=== PATIENT | female | born 1980 | race Caucasian/White ===

== ENCOUNTER → 2018-10-02 | Outpatient (CLI) | payer OTHER | LOC: COL.RAD 07:53 | DX: K59.00 Constipation, unspecified (principal); R10.9 Unspecified abdominal pain; R19.7 Diarrhea, unspecified; R14.0 Abdominal distension (gaseous) | CPT/HCPCS: A9541 ==

== ENCOUNTER → 2020-05-01 | Outpatient (CLI) | payer OTHER | LOC: COL.RAD 11:59 | DX: G43.719 Chronic migraine without aura, intractable, without status migrainosus (principal); G40.909 Epilepsy, unspecified, not intractable, without status epilepticus; F07.81 Postconcussional syndrome | CPT/HCPCS: A9585 ==

== ENCOUNTER → 2020-06-05 | Outpatient (CLI) | payer OTHER | LOC: COL.CARD 12:24 | DX: G43.719 Chronic migraine without aura, intractable, without status migrainosus (principal); G40.909 Epilepsy, unspecified, not intractable, without status epilepticus; R41.89 Other symptoms and signs involving cognitive functions and awareness; F07.81 Postconcussional syndrome ==